=== PATIENT | female | born 1955 ===

== ENCOUNTER → 2018-06-24 | Outpatient (CLI) | payer OTHER ==
[~2018-06-24] VITALS: Ht 165.1 cm; Wt 82.4 kg
[~2018-06-24] MED LIST: CHLORTHALIDONE25 MG PO; LIPITOR10 MG PO; TELMISARTAN40 MG PO
[2018-06-24 13:30] VITALS: BP 125/76
== END ==
LOC: SEN 10:49
DX: R05 Cough (principal); I10 Essential (primary) hypertension; E78.00 Pure hypercholesterolemia, unspecified